=== PATIENT | female | born 1970 | race Caucasian/White ===

== ENCOUNTER 2021-06-26 21:28 | Emergency (ER) | payer OTHER, SELFPAY ==
[2021-06-26 21:54] VITALS: BP 130/76; PULSE 77; RESP 16; TEMP 36.6; O2SAT 100; BMI 31.7
--- NOTE | 2021-06-26 22:58 | ED_ITS ---
HPI - Animal Bite General Chief Complaint: Animal Bite Stated Complaint: cat bite Source: patient Mode of arrival: ambulatory Limitations: no limitations History of Present Illness HPI narrative: 51-year-old female presents with injuries from a cat bite. complaint: animal bite Onset (ago): hour(s) (Within the hour of arrival) Animal: cat Description of animal: household pet, immunizations UTD and appeared well Mechanism: bite Location - Extremities: right: hand Pain description: dull Severity scale (1-10): 1 Context: provoked Associated symptoms: none Related Data Patient tetanus UTD: Yes Previous Rx's Medication Instructions Recorded azithromycin 250 mg tablet 250 mg PO DAILY 4 Days #4 tab 06/26/21 doxycycline monohydrate 100 mg 100 mg PO BID 10 Days #20 cap 06/26/21 capsule Allergies Allergy/AdvReac Type Severity Reaction Status Date / Time Penicillins [PENICILLINS] Allergy Unknown UNKNOWN Verified 06/26/21 23:15 Review of Systems Review of Systems: Constitutional: No Fever, No Chills ENT/Mouth: No Ear Pain, No Hoarseness, No sore throat Eyes: No Eye Pain, No Swelling, No Redness, No Foreign Body Cardiovascular: No Chest Pain, No SOB Respiratory: No Cough, No Dyspnea Gastrointestinal: No Nausea, No Vomiting, No Diarrhea, No abdominal Pain Genitourinary: No Dysuria, No Hematuria Musculoskeletal: No joint pain, No Myalgias, No Joint Swelling Skin: Positive cat bite to right hand, No Skin lacerations, No rash Neuro: No Weakness, No Numbness, No Paresthesias, No Loss of Consciousness, No Dizziness, No Headache Psych: No Anxiety/Panic, No Depression Heme/Lymph: no easy bruising, no Lymphadenopathy Endocrine: No Polyuria, No Polydipsia Yes all other systems are reviewed and are negative [facility] Past Medical History Attestation statement: The following information was validated with the patient. Source: old records reviewed Social History Social History Advance Directives: No Advance Directives Information Provided: Yes Patient : No Physical Exam Vital Signs: Vital Signs: Last Vital Signs Temp 97.8 F 06/26/21 21:54 Pulse 77 06/26/21 21:54 Resp 16 06/26/21 21:54 BP 130/76 06/26/21 21:54 Pulse Ox 100 06/26/21 21:54 BMI result Body Mass Index 31.7 Appearance: Alert. Oriented X3. No acute distress. Eyes: Pupils equal, round and reactive to light. ENT: Pharynx normal. Neck: Normal inspection. Neck supple. CVS: Normal heart rate and rhythm. Pulses normal. Respiratory: No respiratory distress. Breath sounds normal. Abdomen: Soft and nontender. Skin: 4 superficial puncture wounds consistent with cat bite to the right hand. Skin warm and dry. Normal skin color. Normal skin turgor. Extremities: No lower extremity edema. Gait well-balanced well coordinated. Neuro: No motor deficit. No sensory deficit. Cranial nerves 2-12 intact. Course Course Course Narrative: 51-year-old female presents with superficial puncture wounds from cat bite. cat has been properly vaccinated up until a year ago. This is an indoor cat and has no rabies exposure. Patient does have allergy to penicillin, unsure what her reaction is. Will treat with amoxicillin and doxycycline. Patient believes that her Tdap is up-to-date. Patient verbalized understanding of and agrees to plan of care discharge home. MDM - Animal Bite Differential Diagnosis Differential diagnosis: Likely cat bite Medical Records Attestation: I reviewed the patient's medical records. Discharge Plan Discharge Clinical Impression: Cat bite Patient Disposition: Home, Self-Care Instructions: Animal Bite (ED) Additional Instructions: Your evaluated for a cat bite. Please take azithromycin 250 mg for the next 4 days. Your 1st dose of azithromycin was given to you in the emergency department. Please take doxycycline twice a day for the next 10 days. Follow-up with primary care provider Thank you for choosing this emergency department for evaluation. Please follow-up with primary care physician as needed. Return to the emergency department for any new, concerning, or worsening symptoms. Prescriptions: New azithromycin 250 mg tablet 250 mg PO DAILY 4 Days Qty: 4 RF: 0 doxycycline monohydrate 100 mg capsule 100 mg PO BID 10 Days Qty: 20 RF: 0 Interventions: ED Discharge Assessment Last Done: 06/27/21 00:34 Discharge Date/Time: 06/27/21 00:37
[2021-06-26] MEDS: Azithromycin 500 MG TABLET PO (23:23)
== END 2021-06-27 00:37 | disposition home or self-care (01) ==
PROVIDERS: Emergency Provider Internal Medicine; PCP Internal Medicine
DX: S60.571A Other superficial bite of hand of right hand, initial encounter (principal); W55.01XA Bitten by cat, initial encounter; Y93.9 Activity, unspecified; Y92.009 Unspecified place in unspecified non-institutional (private) residence as the place of occurrence of the external cause; Y99.9 Unspecified external cause status
CPT/HCPCS: 99283

== ENCOUNTER 2021-07-26 22:01 | Emergency (ER) | payer OTHER, SELFPAY ==
--- NOTE | ~2021-07-26 | XR_ITS ---
EXAMINATION: XR SHOULDER, LEFT XR HUMERUS, LEFT CLINICAL INFORMATION: Fall. Pain. COMPARISON: Radiographs from 07/26/2021 TECHNIQUE: Single view of the left shoulder. 2 views of the left humerus. FINDINGS: Left shoulder: There is been reduction of the glenohumeral dislocation with anatomic alignment. Dense appearance along the superolateral aspect of the humeral head consistent with a Hill-Sachs lesion. The acromioclavicular joint is intact. Left humerus: No fracture or cortical disruption. Alignment maintained at the elbow. XR/XR shoulder LT 1V IMPRESSION: Reduction of the prior glenohumeral dislocation with appropriate alignment. Hill-Sachs lesion of the humeral head.
--- NOTE | ~2021-07-26 | XR_ITS ---
EXAMINATION: XR SHOULDER, LEFT CLINICAL INFORMATION: Left arm pain COMPARISON: None TECHNIQUE: Three views of the left shoulder. FINDINGS: There is an anterior glenohumeral dislocation. No acute fractures seen. The acromioclavicular joint is intact. The visualized lung is clear. The visualized ribs are intact. XR/XR shoulder LT min 2V IMPRESSION: Anterior glenohumeral dislocation.
--- NOTE | ~2021-07-26 | XR_ITS ---
EXAMINATION: XR SHOULDER, LEFT XR HUMERUS, LEFT CLINICAL INFORMATION: Fall. Pain. COMPARISON: Radiographs from 07/26/2021 TECHNIQUE: Single view of the left shoulder. 2 views of the left humerus. FINDINGS: Left shoulder: There is been reduction of the glenohumeral dislocation with anatomic alignment. Dense appearance along the superolateral aspect of the humeral head consistent with a Hill-Sachs lesion. The acromioclavicular joint is intact. Left humerus: No fracture or cortical disruption. Alignment maintained at the elbow. XR/XR humerus LT IMPRESSION: Reduction of the prior glenohumeral dislocation with appropriate alignment. Hill-Sachs lesion of the humeral head.
--- NOTE | ~2021-07-26 | XR_ITS ---
EXAMINATION: XR HAND, LEFT CLINICAL INFORMATION: Fall, pain. COMPARISON: No similar priors. TECHNIQUE: PA, lateral, and oblique views of the left hand. FINDINGS: No evidence of acute fractures or malalignment. 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 No unexpected radiopaque foreign bodies. XR/XR hand LT min 3V IMPRESSION: No acute fractures or malalignment. 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
[2021-07-26 22:16] VITALS: BP 130/72; BP 135/79; PULSE 79; PULSE 98; RESP 18; TEMP 36.2; O2SAT 100; O2SAT 95; BMI 31.1
[2021-07-26 23:01] VITALS: RESP 18
[2021-07-26] MEDS: fentaNYL citrate/PF 100 MCG/2 ML VIAL 25 MCG IVPUSH (23:01)
[2021-07-26] MEDS: Ketorolac Tromethamine 30 MG/ML VIAL 15 MG IVPUSH (23:02)
[2021-07-26 23:45] VITALS: BP 137/78; PULSE 75; RESP 18; O2SAT 96
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
[2021-07-27 00:47] LABS: Glucose, Whole Blood 173 mg/dL (60-115)
[2021-07-27] MEDS: Lidocaine HCl 1 % MPF 5 ML VIAL 20 ML INFILTRATI (01:42)
== END 2021-07-27 01:55 | disposition home or self-care (01) ==
PROVIDERS: Emergency Provider Student in an Organized Health Care Education/Training Program
DX: S43.015A Anterior dislocation of left humerus, initial encounter (principal); Y04.2XXA Assault by strike against or bumped into by another person, initial encounter; Y93.89 Activity, other specified; Y92.039 Unspecified place in apartment as the place of occurrence of the external cause; Y99.9 Unspecified external cause status
CPT/HCPCS: 23650; 73020; 73030; 73060; 73130; 82947; 96374; 96375; 99284; J1885; J3010

== ENCOUNTER 2022-11-23 12:49 | Emergency (ER) | payer OTHER, SELFPAY ==
--- NOTE | 2022-11-23 13:31 | ED.ABDPAIN ---
HPI - Abdominal Pain General Chief Complaint: Headache Stated Complaint: pain on l side of head Time Seen by Provider: 11/23/22 15:20 Source: patient Mode of arrival: ambulatory Limitations: no limitations History of Present Illness HPI narrative: Patient is a 52 year old assigned female at with a history of migraines presenting to the emergency department today with a migraine. Patient states that the right side of her head hurts and radiates into the back of her head. Patient states that she hasn't had a migraine in years but this is similar to those. Patient denies any dizziness, lightheadedness, abdominal pain, nausea, vomiting, fever, chills, blurry vision, double vision, loss of vision, chest pain, difficulty breathing, shortness of breath, back pain, night sweats, pain with urination, increased urinary frequency, increased urinary urgency, blood in her urine or stool, syncope or a near syncopal episode, recent trauma or falls, bowel incontinence, bladder incontinence, bowel retention, bladder retention, or any other complaints at this time. Severity: mild Pain scale (0-10): 3 Quality: dull Exacerbating factors: nothing Relieving factors: nothing Associated symptoms: denies other symptoms Related Data Previous Rx's Medication Instructions Recorded azithromycin 250 mg tablet 250 mg PO DAILY 4 days #4 tabs 06/26/21 doxycycline monohydrate 100 mg 100 mg PO BID 10 days #20 caps 06/26/21 capsule ibuprofen 400 mg tablet 400 mg PO Q6H PRN pain #20 tabs 07/27/21 Allergies Allergy/AdvReac Type Severity Reaction Status Date / Time Penicillins [PENICILLINS] Allergy Unknown UNKNOWN Verified 11/23/22 13:31 Review of Systems Constitutional: Reports no additional constitutional complaints, Denies chills, Denies fever(s), Reports headache(s) and Denies night sweats Eyes: Reports no additional eye complaints, Denies blurry vision, Denies change in vision, Denies diplopia, Denies eye discharge, Denies loss of vision and Denies eye pain Denies dizziness and Reports headache(s) Cardiovascular: Reports no additional cardiovascular complaints, Denies chest pain, Denies lightheadedness, Denies Loss of Consciousness and Denies dyspnea Respiratory: Reports no additional respiratory complaints and Denies dyspnea Gastrointestinal: Reports no additional gastrointestinal complaints, Denies abdominal pain, Denies melena, Denies hematochezia, Denies change in bowel habits and Denies change in stool character Genitourinary: Denies hematuria, Denies urinary frequency, Denies dysuria, Denies urinary incontinence, Denies urinary hesitancy and Denies urinary urgency Musculoskeletal: Reports no additional musculoskeletal complaints, Denies numbness and Denies tingling Denies dizziness, Reports headache(s), Denies loss of vision, Denies numbness and Denies tingling Psychiatric: Reports no additional psychiatric complaints Endocrine: Reports no additional endocrine complaints Hematologic/Lymphatic: Reports no additional hematologic/lymphatic complaints Allergic/Immunologic: Reports no additional allergic/immunologic complaints [facility] Past Medical History Attestation statement: The following information was validated with the patient. Source: old records reviewed and nursing notes reviewed Social History Social History Advance Directives: No Advance Directives Information Provided: Yes Advance Directives on File: No Physical Exam ED Vital Signs: Vital Signs - 24 hr 11/23/22 13:34 Temperature 98.1 F Pulse Rate 78 Respiratory Rate 18 Blood Pressure 149/89 H Pulse Oximetry 99 Oxygen Delivery Method Room Air BMI result Body Mass Index 34.0 Const General: cooperative, no acute distress, alert and awake Nutritional Appearance: well nourished Orientation/consciousness: patient oriented x3 Limitations: no limitations HENMT Head: Yes normal to inspection and Yes atraumatic Ears: hearing grossly normal bilaterally and external ears normal General nose exam: Normal external nose present, no nasal discharge noted and no epistaxis Face and sinus: Yes normal facial exam, No abrasion and No laceration Mouth: Normal oral and palatal mucosa present, no drooling and no muffled voice Eyes General: appearance normal, both eyes and all related structures Periorbital: periorbital findings normal Eyelids: Yes eyelids normal Conjunctivae: conjunctivae normal Pupils: Equal, round and reactive pupils present EOM: EOMs intact bilaterally Neck Neck: Yes normal visual inspection, Yes full ROM and Yes no lymphadenopathy Chest Chest palpation & inspection: normal inspection of the chest Resp Effort & Inspection: normal respiratory effort and able to speak in complete sentences GI Inspection: Yes normal to inspection Neuro General: patient oriented x3 and moves all extremities Cranial nerves: Yes Equal, round and reactive pupils present Cognition (Neuro): normal cognition Motor exam (neuro): 5/5 motor strength present throughout Sensory Exam: Normal double simultaneous stimulation for sensation Coordination: [id number] test normal Extrem General: Yes normal to inspection, Yes full ROM and Yes capillary refill normal Psych Appearance: grossly normal Mental Status: mental status grossly normal Affect: normal affect Attitude: cooperative Thought process: Normal thought process present Thought content: Normal thought content present Insight: Good insight present (Psych) Course Course Course Narrative: This is a rapid medical exam. Deferred additional HPI, ROS, PE to primary provider. 52 yo female with DM, HTN, vertigo here with complaints here with complaints of right sided LEMUS which radiates to the face with dizziness x 3 days. Will obtain labs, UA. VSS Medical Decision Making Medical Decision Making [facility] Narrative: Patient is a 52 year old assigned female at with a history of migraines presenting to the emergency department today with a headache. Patient's physical exam was unremarkable. Patient's blood work was unremarkable. I explained my physical exam findings as well as all test results to the patient. I answered all questions asked by the patient. Patient received IM Toradol and PO Fiorcet which she stated helped her headache significantly. I stressed the importance of the patient taking her medication as prescribed. I stressed the importance of the patient following up with her primary care provider and a neurologist for migraine management. I stressed the importance of the patient returning to the emergency department immediately if her symptoms were to worsen or if she were to develop any dizziness, shortness of breath, difficulty breathing, chest pain, blurry vision, loss of vision, nausea, vomiting, abdominal pain, fever, chills, back pain, or any other complaints. Patient verbalized agreement and understanding with this treatment plan and discharge. Differential Diagnosis Differential Diagnoses: The differential diagnosis associated with the presentation includes migraine, headache Lab Data [facility] Lab Attestation statement: I reviewed the patient's lab results. 11/23/22 13:53 11/23/22 13:53 Labs: Lab Results 11/23/22 11/23/22 11/23/22 Range/Units 13:53 13:53 13:53 WBC 4.4 L (4.8-10.8) X10*3/uL RBC 4.50 (4.20-5.50) X10*6/uL Hgb 12.0 (12.0-16.0) g/dl Hct 35.9 L (37.0-47.0) % MCV 79.8 L (80.0-98.0) fL MCH 26.7 L (27.0-33.0) pg MCHC 33.4 (31.0-35.0) g/dl RDW 12.5 (11.0-16.0) % Plt Count 240 (160-400) X10*3/uL MPV 9.5 (9.4-12.3) fL Immature Gran % (Auto) 0.0 (0.0-0.4) % Neut % (Auto) 41.4 L (45-73) % Lymph % (Auto) 49.5 H (20-40) % Stark % (Auto) 5.9 (2-11) % Eos % (Auto) 2.5 (0-4) % Baso % (Auto) 0.7 (0-2) % Lymph # (Auto) 2.2 (1.2-4.9) X10*3/uL Stark # (Auto) 0.3 (0.1-1.2) X10*3/uL Eos # (Auto) 0.1 (0.0-0.4) X10*3/uL Baso # (Auto) 0.0 (0.0-0.2) X10*3/uL Abs Immat Gran (auto) 0.00 (0.00-0.03) X10*3/uL Absolute Neuts (auto) 1.8 L (2.0-8.3) x10*3/uL Absolute Nucleated RBC 0.000 (0.0-0.012) X10*3/uL Nucleated RBC % (auto) 0.0 (0.0-0.2) /100WBC ESR 8 (0-20) MM/HR Sodium 140 (135-145) mmol/L Potassium 4.0 (3.3-5.1) mmol/L Chloride 109 H (96-108) mmol/L Carbon Dioxide 20 L (22-29) mmol/L Anion Gap 15 (12-20) BUN 10 (9-16) mg/dL Creatinine 0.77 (0.5-1.4) mg/dL Estim Creat Clear Calc 84.1 Estimated GFR > 60 Random Glucose 226 H (60-115) mg/dL Calcium 8.9 (8.4-10.2) mg/dL Total Bilirubin 0.3 (0.0-1.0) mg/dL Direct Bilirubin 0.1 (0.0-0.5) mg/dL AST 21 (5-31) U/L ALT 21 (0-31) U/L Alkaline Phosphatase 129 H (39-117) U/L C-Reactive Protein 0.16 (< or = 0.50) mg/dL Total Protein 6.9 (6.5-8.0) g/dL Albumin 4.1 (3.5-5.0) g/dL Medications Administered Discontinued Medications Generic Name Dose Route Start Last Admin Trade Name Freq PRN Reason Stop Dose Admin Acetaminophen/Butalbital/Caffeine 1 tab 11/23/22 15:31 11/23/22 15:46 Butalb/Acetamin/Caff 50/325/40 Tablet PO 11/23/22 15:32 1 tab ONCE ONE Administration Ketorolac Tromethamine 15 mg 11/23/22 15:31 11/23/22 15:46 Ketorolac Tromethamine 15 Mg/Ml Vial IM 11/23/22 15:32 15 mg ONCE ONE Administration Discharge Plan Discharge Clinical Impression: Migraine Patient Disposition: Home, Self-Care Instructions: Migraine Headache (ED) Additional Instructions: Your blood work was unremarkable. You may take over the counter migraine medications. Follow up with your primary care provider and a neurologist for migraine management. Return to the emergency department immediately if your symptoms worsen or if you develop any dizziness, shortness of breath, difficulty breathing, chest pain, blurry vision, loss of vision, nausea, vomiting, abdominal pain, fever, chills, back pain, or any other complaints. Prescriptions: No Action azithromycin 250 mg tablet 250 mg PO DAILY 4 Days Qty: 4 0RF Rx Instructions: start on day 2 of therapy doxycycline monohydrate 100 mg capsule 100 mg PO BID 10 Days Qty: 20 0RF ibuprofen 400 mg tablet 400 mg PO Q6H PRN (Reason: pain) Qty: 20 0RF [place] [facility] [place] Group] (Call to establish and follow up with a neurologist for migraine management. ) Michelle Anderson MD [Primary Care Provider] - Stand Alone Forms: Work/School Release Interventions: ED Discharge Assessment Last Done: 11/23/22 15:53 Discharge Date/Time: 11/23/22 15:53 Print Language: Kinyarwanda
[2022-11-23 13:34] VITALS: BP 149/89; PULSE 78; RESP 18; TEMP 36.7; O2SAT 99; BMI 34.0
[2022-11-23 13:58] LABS: MANUAL DIFF FLAG NO
[2022-11-23 14:01] LABS: Basophils Percent Auto 0.7 % (0-2); Eosinophils Absolute Auto 0.1 X10*3/uL (0.0-0.4); Eosinophils Percent Auto 2.5 % (0-4); Hematocrit 35.9 % (37.0-47.0); Lymphocytes Absolute Auto 2.2 X10*3/uL (1.2-4.9); Lymphocytes Percent Auto 49.5 % (20-40); Mean Corpuscular HGB Conc 33.4 g/dl (31.0-35.0); Mean Corpuscular Hemoglobin 26.7 pg (27.0-33.0); Mean Corpuscular Volume 79.8 fL (80.0-98.0); Mean Platelet Volume 9.5 fL (9.4-12.3); Monocytes Absolute Auto 0.3 X10*3/uL (0.1-1.2); Monocytes Percent Auto 5.9 % (2-11); Neutrophils Absolute Auto 1.8 x10*3/uL (2.0-8.3); Neutrophils Percent Auto 41.4 % (45-73); Platelet Count 240 X10*3/uL (160-400); Red Cell Distribution Width 12.5 % (11.0-16.0); White Blood Count 4.4 X10*3/uL (4.8-10.8)
[2022-11-23 14:15] LABS: Alanine Aminotransferase 21 U/L (0-31); Albumin Level 4.1 g/dL (3.5-5.0); Alkaline Phosphatase 129 U/L (39-117); Anion Gap 15 (12-20); Aspartate Amino Transferase 21 U/L (5-31); Bilirubin Direct 0.1 mg/dL (0.0-0.5); Bilirubin Total 0.3 mg/dL (0.0-1.0); Blood Urea Nitrogen 10 mg/dL (9-16); C Reactive Protein 0.16 mg/dL (< or = 0.50); Calcium 8.9 mg/dL (8.4-10.2); Carbon Dioxide 20 mmol/L (22-29); Chloride 109 mmol/L (96-108); Creatinine Clr Calc Pharmacy 84.1; Estimated Glomerular Filt Rate > 60; Glucose Random 226 mg/dL (60-115); Sodium 140 mmol/L (135-145); Total Protein 6.9 g/dL (6.5-8.0)
[2022-11-23 14:44] LABS: Erythrocyte Sedimentation Rate 8 MM/HR (0-20)
[2022-11-23] MEDS: Butalb/Acetamin/Caff 50/325/40 TABLET 1 TAB PO (15:46)
[2022-11-23] MEDS: Ketorolac Tromethamine 15 MG/ML VIAL IM (15:46)
== END 2022-11-23 15:53 | disposition home or self-care (01) ==
PROVIDERS: Nurse Practitioner Family; Emergency Provider Emergency Medicine; PCP Internal Medicine
DX: G43.909 Migraine, unspecified, not intractable, without status migrainosus (principal)
CPT/HCPCS: 36415; 80048; 80076; 85025; 85652; 86140; 96372; 99283; 99284; J1885

== ENCOUNTER → 2023-02-26 09:48 | Outpatient (BNVA) | payer OTHER, SELFPAY | PROVIDERS: PCP Internal Medicine; Visit Provider Internal Medicine | DX: M25.561 Pain in right knee (principal); M25.562 Pain in left knee; M50.33 Other cervical disc degeneration, cervicothoracic region | CPT/HCPCS: 99203 ==

== ENCOUNTER → 2023-03-02 10:44 | Outpatient (BNVA) | payer OTHER, SELFPAY | PROVIDERS: PCP Internal Medicine; Visit Provider Internal Medicine | DX: M54.2 Cervicalgia (principal); M25.561 Pain in right knee; M25.562 Pain in left knee; M54.9 Dorsalgia, unspecified | CPT/HCPCS: 99213 ==